=== PATIENT | male | born 1960 | race Caucasian/White ===

== ENCOUNTER 2016-12-05 17:10 | Emergency (ER) | payer OTHER, BC ==
[2016-12-05] MEDS ORDERED: Diphtheria,Pertussis(Acell),Tetanus Vaccine 0.5 ML SDV inactive IM ONE (17:18)
--- NOTE | 2016-12-05 17:21 | EDM.PDOC ---
ED HPI Trauma - General Chief Complaint: Trauma Stated Complaint: [facility] Time Seen by Provider: 12/05/16 17:15 Source: Reports: Patient, EMS notes reviewed History Limitations: Reports: No limitations - History of Present Illness INITIAL COMMENTS - FREE TEXT/NARRATIVE: 56-year-old male who fell from a scaffold apparently at 9-10 feet off the ground. Landed on his head. Patient can not remember what he was doing and has amnesia for the event. He's been alert and oriented since the paramedics arrived on scene in [place]. [place]. He's had 2 mg of Dilaudid enroute and 4 mg of Zofran. Has [address] . Immobilized in c- collar and spine board. Patient is alert and able to answere most questions -- allergies and current meds. Not oriented to time. and cooperative on exam. Obvious very large hematoma coming from the ventral scalp. No signs of paralysis. His full unrestricted range of motion of both knees and hips with no obvious injuries to his pelvis or lumbar spine on exam. Chest is clear to auscultatin and percussion with no subcutaneous emphysema palpable. Benign abdomen on initial assessment. Vital signs BP 121/93 heart rate 67 pulse ox 96% on room air . Unsure if TDap is UTD. He'll be taken to CT suite for CT head and neck ,facial bones. T-spine and lumbar spine and CT chest ,abdomen and pelvis with contrast.he is allergic to amoxicillin. Fairly developed a rash in the past. supplies history that he has sarcoidosis diagnosed about 15 years ago and is on inhalers for his lungs. Symptom Onset Date: 12/05/16 Symptom Onset Time: 16:00 Occurred When: this afternoon Occurred Where: work (coworkers indicate that they were placing rafters on a roof approximately 9-10 feet off the ground when he lost his balance and fell headfirst on cement pad. He attended them right away and he was moaning and groaning initially but never lost consciousness completely.) Method of Injury: fall Severity: severe Pain/Injury Location: Reports: head, face, neck, back Consciousness: Reports: brief (seconds). Denies: remembers incident (amnesia for the event), remembers coming to hosp Associated Symptoms: Reports: confusion, headache. Denies: shortness of breath , slurred speech, vision changes Allergies/ADRs: Allergies amoxicillin Allergy (Verified 12/05/16 17:17) Cannot Remember Past Medical History Respiratory History: Reports: Other (see below) (or cord doses diagnosed approximate 15 years ago. It is in his quiesced since stages at this time. He has fairly extensive scar tissue throat his lungs and requires inhalers. Was on Advair Diskus but discontinued recently due to cost. He is on a new inhaler that starts S.--Symbicort? twice daily) Social & Family History - Living Situation & Occupation Living situation: Reports: Occupation: employed ( and lives with in [place]. She attended him in the ED.) Review of Systems - Review of Systems Review Of Systems: Unable To Obtain (unable to obtain with any degree of certainty as the patient is too confused most of the time.) Eyes: Reports: other (does not wear glasses.) Ears: Reports: other (hearing is good does not wear hearing needs.) Respiratory: Reports: Shortness of Breath, Wheezing (chronically.), Cough. Denies: Pleuritic Chest Pain (occasionally.), Sputum (dry cough), Hemoptysis Cardiovascular: Denies: chest pain Neurological: Reports: Confusion, Headache ED EXAM, TRAUMA (MAJOR/MULTI) - Physical Exam Exam: See Below Exam Limited By: Altered mental status (patient keeps asking the same questions over and over again as to where he was and what happened to him. Has no recollection or in amnesia for the event today.) General Appearance: anxious, mild distress Head: scalp lacerations (huge scalp laceration that starts in the mid vertex of the scalp and flaps down towards the occiput. The full extent of the laceration was never fully identified as we could not move him do to C-spine precautions.) , scalp swelling (large amount of hematoma but is a 500 mils of blood loss from the scalp occurred at. I removed as much clot as possible from the wound and sutured with 2-0 Prolene as much scalp as I could reach to provide hemostasis.) , scalp hematoma, active bleeding, Gallardo's Sign (both eyes are starting to turn black particularly the right upper eyelid.), flap, other (is a tear of the skin of the left upper eyelid.) Eyes: left eye: conjunctival injection (mild.), bilateral eye: PERRL (pupils are proximal the 2-3 mm in size and do react briskly to light.) Ears: other (the left ear was filled with blood and clot. I removed most of this with that Q-tips. The tympanic membrane is intact with no evidence of cerebrospinal fluid drainage. Similarly the right side contained no blood and no CSF drainage.) Nose: normal inspection, normal mucousa. No: clear rhinorrhea, nasal deformity , nasal discharge, nasal swelling, nasal tenderness, septal hematoma Throat/Mouth: Normal voice, No airway compromise, Other (no blood in the posterior oropharynx identified. Mandible intact with no malocclusion.) Neck: other (neck was never examined. He is in c-collar and will remain in c- collar until C-spine cleared by CT exam.) Cardiovascular: normal peripheral pulses, regular rate, rhythm, no edema, no gallop, no murmur Respiratory/Chest: no respiratory distress, decreased breath sounds (decreased breath sounds to the posterior lungs bilaterally.), wheezing (occasional expiratory wheeze from the bases.). No: crackles, rales, rhonchi, accessory muscle use, splinting, paradoxal chest movement, crepitus, rib tenderness, right , rib tenderness, left GI/Abdominal: normal bowel sounds, soft, non tender, no organomegaly, other (no masses. No peritoneal signs no tenderness on exam.) Rectal (Males) Exam: Normal exam, Normal rectal tone Back: other (she was never logroll to completely check his back. Palpation of the lumbar spine did not reveal any pain or deformities. He did seem to have pain in the mid thoracic spine on palpation.) Extremities: other (he could lift both legs off the gurney and I can easily move i.e. flex both knees and internally externally rotate both hips with no evidence of any injuries to his pelvis femurs or lower extremities. Good pulses to both feet. He has full sensation to his feet. Menses are both downgoing.) Neurologic: no motor/sensory deficits, alert. No: oriented x 3 (disoriented to time.), abnormal cerebellar tests, abnormal towel sorter II-XII, abnormal gait, aphasia, facial droop Skin: Normal color, Warm/dry - Rachel Coma Score Best Eye Response (Rachel): (4) open spontaneously Best Verbal Response (Rachel): (4) confused conversation Best Motor Response (Rachel): (6) obeys commands Rachel Total: 14 Course - Vital Signs Last Recorded V/S: Last Vital Signs Temp 35.8 C 12/05/16 18:06 Pulse 104 H 12/05/16 18:25 Resp 15 12/05/16 18:25 BP 124/92 H 12/05/16 18:25 Pulse Ox 100 12/05/16 18:25 - Orders/Labs/Meds Orders: Active Orders 24 hr Category Date Time Status Vaccines to be Administered [RC] PER UNIT ROUTINE Care 12/05/16 17:19 Active Cervical Spine wo Cont [CT] Stat Exams 12/05/16 17:17 Taken Chest Abdomen Pelvis w Cont [CT] Stat Exams 12/05/16 17:17 Taken Head wo Cont [CT] Stat Exams 12/05/16 17:25 Taken Lumbar Spine wo Cont [CT] Stat Exams 12/05/16 17:17 Taken Maxillofacial w/o CM [Max Facial Sinus wo Cont] [CT] Exams 12/05/16 17:21 Taken Stat Thoracic Spine wo Cont [CT] Stat Exams 12/05/16 17:17 Taken Sodium Chloride 0.9% [Normal Saline] 1,000 ml Med 12/05/16 18:00 Active IV ASDIRECTED Medication Orders Sodium Chloride (Normal Saline) 1,000 mls @ 150 mls/hr IV ASDIRECTED JUANCHO Last Admin: 12/05/16 18:01 Dose: 150 mls/hr Labs: Laboratory Tests 12/05/16 12/05/16 12/05/16 Range/Units 17:50 17:50 17:50 WBC 17.75 H (4.23-9.07) K/mm3 RBC 3.92 L (4.63-6.08) M/mm3 Hgb 12.6 L (13.7-17.5) gm/L Hct 38.7 L (40.1-51.0) % MCV 98.7 H (79.0-92.2) fl MCH 32.1 (25.7-32.2) pg MCHC 32.6 (32.2-35.5) g/dl RDW Std Deviation 45.0 H (35.1-43.9) fL Plt Count 194 (163-337) K/mm3 MPV 9.3 L (9.4-12.3) fl Neutrophils % (Manual) 70 H (40-60) % Band Neutrophils % 1 (0-10) % Lymphocytes % (Manual) 21 (20-40) % Atypical Lymphs % 0 % Monocytes % (Manual) 5 (2-10) % Eosinophils % (Manual) 3 (0.8-7.0) % Basophils % (Manual) 0 L (0.2-1.2) Platelet Estimate Adequate RBC Morph Comment Normal PT 10.9 (8.0-13.0) SECONDS INR 1.00 APTT 26 (22-36) SECONDS Sodium 140 (136-145) mEq/L Potassium 3.6 (3.5-5.1) mEq/L Chloride 106 (98-107) mEq/L Carbon Dioxide 28 (21-32) mEq/L Anion Gap 9.6 (5-15) BUN 20 H (7-18) mg/dL Creatinine 1.2 (0.7-1.3) mg/dL Est Cr Clr Drug Dosing 74.08 mL/min Estimated GFR (MDRD) > 60 (>60) mL/min BUN/Creatinine Ratio 16.7 (14-18) Glucose 129 H (74-106) mg/dL Calcium 8.3 L (8.5-10.1) mg/dL Total Bilirubin 0.3 (0.2-1.0) mg/dL AST 37 (15-37) U/L ALT 39 (16-63) U/L Alkaline Phosphatase 92 (46-116) U/L Total Protein 6.7 (6.4-8.2) g/dl Albumin 3.3 L (3.4-5.0) g/dl Globulin 3.4 gm/dL Albumin/Globulin Ratio 1.0 (1-2) Ethyl Alcohol 0.00 (0.00) gm% Meds: Medications Generic Name Dose Route Start Last Admin Trade Name Freq PRN Reason Stop Dose Admin Sodium Chloride 1,000 mls @ 150 mls/hr 12/05/16 18:00 12/05/16 18:01 Normal Saline IV 150 mls/hr ASDIRECTED JUANCHO Administration Discontinued Medications Generic Name Dose Route Start Last Admin Trade Name Freq PRN Reason Stop Dose Admin Diphtheria/Tetanus/Acell Pertussis 0.5 ml 12/05/16 17:18 12/05/16 17:25 Boostrix IM 12/05/16 17:19 0.5 ml .ONCE ONE Administration Cefazolin Sodium/Dextrose 1 gm 50 mls @ 100 mls/hr 12/05/16 17:53 12/05/16 17 :59 / Premix IV 12/05/16 18:22 100 mls/hr ONETIME ONE Administration Iopamidol 150 ml 12/05/16 18:07 12/05/16 18:32 Isovue-300 (61%) IVPUSH 12/05/16 18:08 150 ml ONETIME ONE Administration Lidocaine/Epinephrine Confirm 12/05/16 17:47 12/05/16 17:58 Xylocaine 1% With Epinephrine 1:100,000 Administered 12/05/16 17:48 Not Given Dose 20 ml .ROUTE .STK-MED ONE Lidocaine/Epinephrine 20 ml 12/05/16 17:57 12/05/16 18:01 Xylocaine 1% With Epinephrine 1:100,000 INJECT 12/05/16 17:58 20 ml ONETIME ONE Administration Metoclopramide HCl Confirm 12/05/16 18:33 12/05/16 18:45 Reglan Administered 12/05/16 18:34 Not Given Dose 10 mg .ROUTE .STK-MED ONE Metoclopramide HCl 10 mg 12/05/16 18:34 12/05/16 18:36 Reglan IVPUSH 12/05/16 18:35 10 mg ONETIME ONE Administration Sodium Chloride 10 ml 12/05/16 18:07 12/05/16 18:32 Saline Flush FLUSH 12/05/16 18:08 10 ml ONETIME ONE Administration - Radiology Interpretation Free Text/Narrative:: 56-year-old male arrives in the ED per [facility].he was working on a building in the city[place] Apparently fell 9-10 feet that were they were placing rafters and landed head first onto concrete. 2 coworkers attendance immediately and called 911. Time of injury was estimated to be red around 1600 hours today on standard time. Patient was identified to have a very active brisk bleeding from open wound to his scalp. He was immobilized with C-spine and spine board precautions. He remains alert but asks the same question over again as to where it he was and what happened to him he has amnesia for the event. Care member what he had for dinner. He can tell me what he was allergic allergic to and that he takes inhalers for his asthma COPD. Can't remember the last time he had a tetanus diphtheria or pertussis vaccination. Allergy to Amoxil was skin rash.plan patient taken to the CT suite. IVs will be run at 75 mils each for a total of 150 mils per hour both normal saline. TDap to be updated. - Re-Assessments/Exams Free Text/Narrative Re-Assessment/Exam: 12/05/16 17:50: identified to have a very large flap laceration of his scalp which actively bleeding. I cleansed as much clot from the wound as possible and is sutured as far as I could reach it separately with 2-0 Prolene to provide hemostasis. Estimated loss of blood is greater than [address] head reveals an extensive skull fracture extending from mid vertex on the left side to the foramen magnum inferiorly. Associated mild occipital contusion to the tentorial plate. This is difficult to read as this is a watershed area. No obvious intracranial bleeding otherwise appreciated or mass effect. CT of the cervical spine reveals a comminuted fracture of cervical one vertebra a burst type fracture. Fracture fragments are mildly splayed and displaced. There is also a fracture of the right lateral mass of C2 and the fracture line extends into the vertebral foramen possibly involving the vertebral artery. Degenerative changes are appreciated C5-C6 levels. CT of the thoracic spine reveals a compression fracture at thoracic 3 and last thoracic 12 levels with anterior wedging. There was no retropulsed fragments to involve the spinal cord. Lumbar spine revealed degenerative changes only with no fractures evident. CT of the chest revealed a suspect manubrial fracture with no significant displacement. Aorta and great vessels appear to be intact. Stitches should evident throughout both lungs compatible with his history of sarcoidosis 15 years ago. No abnormalities appreciated on examination of the abdomen and pelvis on CT. Patient will be need to be flown out to trauma Center for neurosurgical capabilities are available. Is received care at in the past. I will give him Ancef 1 g IV evening in spite of him having any allergy to penicillin in the past. 12/05/16 18:20 : Spoke with one call at [facility] in [facility] and subsequently spoke to Dr. Cook group reservations coordinator trauma surgeon and on-call neurosurgeon. Patient will be accepted at the ER. Plan is to send him by helicopter as soon as possible.send copies of all his CT`s to [place] via PACS. 12/05/16 18:50: Patient is complaining of a severe headache and nausea. Given Reglan 10 mg IV and paramedics will give him 50 mcg of fentanyl as needed for headache relief eroute to [place]. Departure - Departure Time of Disposition: 19:10 Disposition: DC/Tfer to Acute Hospital 02 Condition: critical Clinical Impression: Multiple injuries due to trauma, Fracture of thoracic spine at T3-T4 level Closed cervical spine fracture Qualifiers: Encounter type: initial encounter Cervical vertebra fracture level: C2 Fracture morphology: other fracture Fracture alignment: displaced Qualified Code (s): S12.190A - Other displaced fracture of second cervical vertebra, initial encounter for closed fracture Fracture of T12 vertebra Qualifiers: Encounter type: initial encounter Fracture type: closed Fracture morphology: wedge compression Qualified Code(s): S22.080A - Wedge compression fracture of T11-T12 vertebra, initial encounter for closed fracture Fracture closed, sternum Qualifiers: Encounter type: initial encounter Sternal location: manubrium Qualified Code(s) : S22.21XA - Fracture of manubrium, initial encounter for closed fracture Laceration of skin of scalp Qualifiers: Encounter type: initial encounter Qualified Code(s): S01.01XA - Laceration without foreign body of scalp, initial encounter Open skull fracture with cerebral contusion Qualifiers: Encounter type: initial encounter Qualified Code(s): S02.91XB - Unspecified fracture of skull, initial encounter for open fracture Forms: ED Department Discharge Additional Instructions: patient transferred to [facility] in [facility] as this is where his received previous care and this was his wives request. As for by air by helicopter. Dr. Cook excepted care he is a trauma surgeon. Also is able to speak to neurosurgeon group reservations coordinator at the same time and he will also be available to see the patient in the ED. Critical Care Note - Critical Care Note Total Time (mins): 65 - My Orders Last 24 Hours: My Active Orders 12/05/16 17:17 Cervical Spine wo Cont [CT] Stat Chest Abdomen Pelvis w Cont [CT] Stat Lumbar Spine wo Cont [CT] Stat Thoracic Spine wo Cont [CT] Stat 12/05/16 17:19 Vaccines to be Administered [RC] PER UNIT ROUTINE 12/05/16 17:21 Maxillofacial w/o CM [Max Facial Sinus wo Cont] [CT] Stat 12/05/16 17:25 Head wo Cont [CT] Stat 12/05/16 18:00 Sodium Chloride 0.9% [Normal Saline] 1,000 ml IV ASDIRECTED - Assessment/Plan Last 24 Hours: My Active Orders 12/05/16 17:17 Cervical Spine wo Cont [CT] Stat Chest Abdomen Pelvis w Cont [CT] Stat Lumbar Spine wo Cont [CT] Stat Thoracic Spine wo Cont [CT] Stat 12/05/16 17:19 Vaccines to be Administered [RC] PER UNIT ROUTINE 12/05/16 17:21 Maxillofacial w/o CM [Max Facial Sinus wo Cont] [CT] Stat 12/05/16 17:25 Head wo Cont [CT] Stat 12/05/16 18:00 Sodium Chloride 0.9% [Normal Saline] 1,000 ml IV ASDIRECTED
[2016-12-05] MEDS ORDERED: Lidocaine 1% with EPINEPHrine 1:100,000 20 ML MDV ONE (17:47)
[2016-12-05] MEDS ORDERED: ceFAZolin 1 GM in Premix Bag 1 BAG IV ONE (17:53)
[2016-12-05] MEDS ORDERED: Lidocaine 1% with EPINEPHrine 1:100,000 20 ML MDV INJECT ONE (17:57)
[2016-12-05] MEDS ORDERED: Sodium Chloride 0.9% 1,000 ML IV SCH (18:00)
[2016-12-05] MEDS ORDERED: Iopamidol 612 MG/ML 150 ML Bottle IVPUSH ONE (18:07)
[2016-12-05] MEDS ORDERED: Sodium Chloride 0.9% 10 ML Syringe FLUSH ONE (18:07)
[2016-12-05] MEDS ORDERED: Metoclopramide 10 MG/2 ML SDV ONE (18:33)
[2016-12-05] MEDS ORDERED: Metoclopramide 10 MG/2 ML SDV IVPUSH ONE (18:34)
[2016-12-05 20:06] VITALS: BP 115/89
--- NOTE | 2016-12-06 10:54 | CT ---
Head CT Technique: Multiple axial sections through the brain were obtained. Intravenous contrast was not utilized. Comparison: No previous intracranial imaging. Findings: Ventricles along with basal cisterns and sulci over the convexities are minimally prominent. Nondisplaced fracture is identified beginning at the posterior foramen magnum and extending within the posterior skull to the skull vertex. Extensive soft tissue injury with swelling, hemorrhage and laceration noted within the posterior left side. No intracranial hemorrhage is seen. No midline shift or mass effect is identified. Mucosal thickening noted within the maxillary sinuses with small air-fluid level noted on the left side within the maxillary sinus. Mastoid sinuses and middle ear cavities are clear. Impression: 1. Nondisplaced posterior skull fracture. Extensive soft tissue swelling and hematoma within the posterior and left sided scalp. 2. Sinus disease presumably pre-existing or due to retained secretions. Please exclude any symptoms of superimposed acute sinusitis. 3. No acute intracranial abnormality is identified. Diagnostic code #3 I agree with preliminary report issued by [facility] (report finalized on 12/05/16, 6:58 PM Central Time)
--- NOTE | 2016-12-06 10:54 | CT ---
CT facial bones Technique: Multiple axial sections were obtained from above the orbits inferiorly through the mandible. Reconstructed coronal and sagittal images were reviewed. Findings: Fracture partially seen within the posterior skull base. Fractures are also seen within the right side of C2 and comminuted fracture within C1. Moderate mucosal thickening noted within both maxillary sinuses. Small air-fluid level noted within the left maxillary sinus. Mild areas of mucosal thickening seen within the ethmoid sinuses. No facial bone fracture is identified. Impression: 1. Posterior skull fracture and cervical spine fracture as noted above and previously described on studies of both these areas. 2. Sinus disease most likely chronic but air-fluid level within the left maxillary sinus could represent retained secretions versus pre-existing sinusitis. Please correlate. 3. No acute facial bone fracture is seen. Diagnostic code #3 I agree with preliminary report issued by [facility] (report finalized on 12/05/16, 7:04 PM Central Time)
--- NOTE | 2016-12-06 10:54 | CT ---
CT thoracic spine Technique: Multiple axial sections were obtained through the thoracic spine. Reconstructed sagittal and coronal images were reviewed. Fracture is identified within T3. Fracture shows mild anterior wedging and involves the mid and anterior vertebral body. No fracture is appreciated within the posterior elements. Scattered disc space narrowing and endplate osteophytes are seen. No additional fracture is seen within the thoracic spine. No abnormal subluxation is seen. Fracture is identified within the manubrium. Areas of parenchymal density seen within the lungs which will be described on chest CT. Multiple calcified granulomas are also noted within the mediastinum area Mild soft tissue swelling is seen within the paravertebral soft tissues at the level of the T3 fracture. Impression: 1. T3 vertebral body fracture with anterior wedging. Surrounding soft tissue paravertebral hematoma. 2. Degenerative change as described above. 3. Nothing acute is otherwise seen within the thoracic spine. 4. Partially visualized manubrial fracture. Diagnostic code #3 I agree with preliminary report issued by [facility] (report finalized on 12/05/16, 7:15 PM Central Time)
--- NOTE | 2016-12-06 10:54 | CT ---
CT cervical spine Technique: Multiple axial sections were obtained from above C1 inferiorly to the bottom of T1. Reconstructed sagittal and coronal images were reviewed. Findings: Fracture identified within the skull base posteriorly. Displaced fracture noted within C1. C1 fracture occurs in 2 places within the anterior ring to the right and left side of the dens. Displacement is up to 8 mm. Additional fracture is identified within the posterior left ring of C1 with minimal displacement. C2 fracture identified on the right side within the lateral mass. Fracture extends into the vertebral foramen. No additional fracture is seen within C2. No additional cervical spine fracture is seen. Disc space narrowing noted at C6-C7 with anterior and posterior spurring . Slight posterior spurring noted within the uncovertebral joints at C3-C4, C4-C5, C5-C6 and C6-C7. Mild left-sided neural foraminal stenosis noted at C3-C4 and moderate right-sided neural foraminal stenosis noted at C3-C4. Mild right-sided neural foraminal stenosis noted at C4-C5. Moderate bilateral neural foraminal stenosis noted at C5-C6. No bony central canal stenosis is seen. Impression: 1. Fracture of C1 and C2 as described above. Fracture is unstable. 2. Degenerative change as described above. 3. Posterior skull fracture. Diagnostic code #5 I agree with preliminary report issued by [facility] (report finalized on 12/05/16, 7:01 PM Central Time, ad radiologist verbally discussed findings with Dr. Flaherty on the day of the exam at 7:10 PM)
--- NOTE | 2016-12-06 10:54 | CT ---
CT lumbar spine Technique: Multiple axial sections were obtained through the lumbar spine Findings: Mild areas of disc space narrowing and vacuum phenomena seen within the discs within the lumbar spine. Scattered endplate osteophytes are seen. Mild degenerative apophyseal change is seen within the lower spine. No fracture identified within the lumbar spine. No abnormal subluxation is seen on the reconstructed sagittal images. Mild diffuse disc bulging seen throughout the lumbar spine. Impression: 1. Degenerative change as described above. 2. No acute fracture or abnormal subluxation is identified on CT study of the lumbar spine. Diagnostic code #2 I agree with preliminary report issued by [facility] (I do not have the time the preliminary report was issued at time of this dictation)
--- NOTE | 2016-12-06 10:54 | CT ---
CT chest Technique: Multiple axial sections through the chest were obtained. Reconstructed sagittal and coronal images were reviewed. Intravenous contrast was utilized. Comparison: No previous chest CT. Findings: On the reconstructed sagittal images there is a minimally displaced manubrial fracture being seen near the sternomanubrial junction. Numerous calcified lymph nodes are seen within the mediastinum and hilar regions compatible with previous granulomatous exposure. No axillary adenopathy is seen. Enhanced great vessels are within normal limits. No pericardial thickening is seen. Areas of scarring noted within the lungs. Focal parenchymal density noted within the posterior right upper lung extending up the right hilar region most likely chronic and due to chronic scarring with atelectasis secondary to the previous granulomatous exposure. Nothing seen to indicate pulmonary hematoma. No pleural effusions are seen. Bone window settings were reviewed which show a fracture within the T3 vertebral body which was described on thoracic spine study. No rib fracture is appreciated on this exam. Impression: 1. Chronic changes within both lungs as described above. 2. Minimally displaced manubrial fracture as well as fracture within T3. 3. Nothing acute is otherwise seen on CT study of the chest. Diagnostic code #3 I agree with preliminary report issued by [facility] (report finalized on 12/05/16, 7:04 PM Central Time) CT abdomen and pelvis Technique: Multiple axial sections were obtained from above the dome of the diaphragm inferiorly through the pubic symphysis. Intravenous contrast was utilized. No oral contrast has been given. Comparison: No previous abdominal imaging. Findings: Minimal hiatal hernia is seen. Calcified lymph nodes seen at the diaphragmatic hiatus which are incidental. Liver shows no focal parenchymal abnormality. Spleen appears within normal limits. Adrenal glands show no nodule. Kidneys show symmetric contrast enhancement without hydronephrosis or mass. Pancreas is normal. Aorta shows no abnormalities. No retroperitoneal adenopathy or mesenteric abnormalities are seen. No pelvic mass or adenopathy is noted. Incidental calcification within the prostate is seen. Bone window settings were reviewed which show degenerative change within the spine. No pelvic fracture is seen. Impression: 1. Incidental findings. Nothing acute is identified on CT study of the abdomen and pelvis. Diagnostic code #2 I agree with preliminary report issued by [facility] (report finalized on 12/05/16, 7:09 PM Central Time)
== END 2016-12-05 18:35 ==
LOC: JD.ED 17:10
PROC: 0HQ0XZZ Repair Scalp Skin, External Approach (ICD-10-PCS; principal; 2016-12-05)
PROC: 3E0234Z Introduction of Serum, Toxoid and Vaccine into Muscle, Percutaneous Approach (ICD-10-PCS; 2016-12-05)
DX: S01.01XA Laceration without foreign body of scalp, initial encounter (principal); S12.190A Other displaced fracture of second cervical vertebra, initial encounter for closed fracture; S22.080A Wedge compression fracture of T11-T12 vertebra, initial encounter for closed fracture; S22.21XA Fracture of manubrium, initial encounter for closed fracture; S02.91XB Unspecified fracture of skull, initial encounter for open fracture; W17.89XA Other fall from one level to another, initial encounter; Y93.89 Activity, other specified; Y92.61 Building [any] under construction as the place of occurrence of the external cause; D86.9 Sarcoidosis, unspecified; R51 Headache; R11.0 Nausea; Z23 Encounter for immunization
CPT/HCPCS: 13121; 13122; 36415; 70450; 70486; 71260; 72125; 72128; 72131; 74177; 80053; 85025; 85610; 85730; 90471; 90715; 96365; 96374; 99285; G0480; J0690; J2765; J7040; J7050; Q9967; 12005; 96361; 99291